=== PATIENT | male | born 1970 | race African-American/Black ===

== ENCOUNTER 2024-09-05 14:09 | Emergency (ER) | payer OTHER ==
[~2024-09-05] VITALS: Ht 193 cm; Wt 108.9 kg
[2024-09-05] MEDS ORDERED: LIDOCAINE 5% (PATCH) 1 EA PATCH TP ONE (15:01)
[2024-09-05] MEDS ORDERED: KETOROLAC TROMETHAMINE INJ 30 MG/ML VIAL ONE (15:02)
[2024-09-05] MEDS ORDERED: TRAMADOL HCL 50 MG TABLET ONE (15:02)
[2024-09-05] MEDS ORDERED: BACLOFEN (10 MG) 10 MG TABLET ONE (15:03)
[2024-09-05] MEDS: KETOROLAC TROMETHAMINE INJ 30 MG/ML VIAL IM ONE (15:12)
[2024-09-05] MEDS: BACLOFEN (10 MG) 10 MG TABLET PO ONE (15:12)
[2024-09-05] MEDS: TRAMADOL HCL 50 MG TABLET PO ONE (15:13)
[2024-09-05] MEDS: LIDOCAINE 5% (PATCH) 1 EA PATCH TP SCH (15:13)
[2024-09-05] MEDS ORDERED: BACL10TA PO (15:55)
[2024-09-05] MEDS ORDERED: KETO10TA2 PO (15:55)
[2024-09-05 16:12] VITALS: BP 127/80; TEMP 98.5; O2SAT 98
== END 2024-09-05 16:12 | disposition home or self-care (01) ==
LOC: ER 14:09
DX: M54.40 Lumbago with sciatica, unspecified side (principal); Z79.899 Other long term (current) drug therapy
CPT/HCPCS: 99283; 96372; J1885